=== PATIENT | male | born 1980 | race Caucasian/White ===

== ENCOUNTER 2017-05-10 04:40 | Emergency (ER) | payer BC, OTHER ==
[2017-05-10] MEDS ORDERED: Ibuprofen 600 MG Tab PO ONE (05:05)
--- NOTE | 2017-05-10 05:18 | EDM.PDOC ---
ED HPI GENERAL MEDICAL PROBLEM - General Chief Complaint: Upper Extremity Injury/Pain Stated Complaint: crush injury Time Seen by Provider: 05/10/17 05:00 Source of Information: Reports: Patient History Limitations: Reports: No Limitations - History of Present Illness INITIAL COMMENTS - FREE TEXT/NARRATIVE: Patient got finger caught between two pieces of steel that he was sheering while working at [employer]. Tip of finger has crush injury. No numbness or tingling. Able to flex and extend finger. Denies other injuries. Skin is intact. left 4th digit (ring finger) Pain Score (Numeric/FACES): 4 - Related Data Allergies Allergy/AdvReac Type Severity Reaction Status Date / Time No Known Allergies Allergy Verified 05/10/17 04:48 Home Meds: Home Meds . [No Known Home Meds] 05/10/17 [History] Past Medical History - Past Health History Medical/Surgical History: Denies Medical/Surgical History Musculoskeletal History: Reports: Fracture - Past Surgical History Musculoskeletal Surgical History: Reports: Other (See Below) Other Musculoskeletal Surgeries/Procedures:: left forearm fracture with surgical repair- no added metal Social & Family History - Tobacco Use Smoking Status *Q: Former Smoker Used Tobacco, but Quit: Yes Month Tobacco Last Used: 2009 Review of Systems - Review of Systems Review Of Systems: ROS reveals no pertinent complaints other than HPI. ED EXAM, GENERAL - Physical Exam Exam: See Below Exam Limited By: No Limitations General Appearance: Alert, WD/WN, No Apparent Distress Eye Exam: Bilateral Eye: EOMI, PERRL Head: Atraumatic, Normocephalic Neck: Supple Respiratory/Chest: No Respiratory Distress Peripheral Pulses: 2+: Radial (L) GI/Abdominal: Soft, Non-Tender (Male) Exam: Deferred Rectal (Males) Exam: Deferred Extremities: Other (Mild early bruising at base of nail bed and fingertip of left ring finger. No lacerations or abrasions. Nail is intact. Tendon function intact. Sensory intact. Remaining fingers and rest of hand unremarkable. ) Neurological: Alert, Oriented, Normal Cognition, No Motor/Sensory Deficits Psychiatric: Normal Affect, Normal Mood Skin Exam: Warm, Dry, Intact, Ecchymosis Course - Vital Signs Last Recorded V/S: Last Vital Signs Temp 36.6 C 05/10/17 04:43 Pulse 77 05/10/17 04:43 Resp 18 05/10/17 04:43 BP 141/82 H 05/10/17 04:43 Pulse Ox 95 05/10/17 04:43 - Orders/Labs/Meds Orders: Active Orders 24 hr Category Date Time Status Hand Comp Min 3V Lt [CR] Stat Exams 05/10/17 04:49 Taken Meds: Medications Discontinued Medications Generic Name Dose Route Start Last Admin Trade Name Freq PRN Reason Stop Dose Admin Ibuprofen 600 mg 05/10/17 05:05 Motrin PO 05/10/17 05:06 ONETIME ONE - Radiology Interpretation Free Text/Narrative:: Fracture of distal phalanx 4th finger confirmed by xray. Non-displaced. - Re-Assessments/Exams Free Text/Narrative Re-Assessment/Exam: Non-displaced fracture of left ring finger confirmed. Splint placed over tip of finger. Work restrictions determined. No subungual hematoma at this time. Discussed with patient that he should return if one develops. Precautions reviewed prior to discharge. Free Text/Narrative Re-Assessment/Exam: 05/10/17 05:25 Patient requested an Ibuprofen for pain. Declined other pain medications. Departure - Departure Time of Disposition: 05:14 Disposition: Home, Self-Care 01 Condition: Good Clinical Impression: Finger fracture, left Qualifiers: Encounter type: initial encounter Finger: ring finger Fracture type: closed Phalanx: distal Fracture alignment: nondisplaced Qualified Code(s): S62.665A - Nondisplaced fracture of distal phalanx of left ring finger, initial encounter for closed fracture - Discharge Information Instructions: Finger Fracture, [id number] Referrals: PCP,Unknown [Primary Care Provider] - Forms: ED Department Discharge Additional Instructions: Wear brace you were given in the ER to help protect the injured area from movement/re-injury. Follow up with your primary care clinic in 7-10 days to see how things are healing. Further work restrictions can be determined at that time if needed. Follow up otherwise as needed. - My Orders Last 24 Hours: My Active Orders 05/10/17 04:49 Hand Comp Min 3V Lt [CR] Stat - Assessment/Plan Last 24 Hours: My Active Orders 05/10/17 04:49 Hand Comp Min 3V Lt [CR] Stat
== END 2017-05-10 05:43 | disposition home or self-care (01) ==
LOC: LL.ED 04:40
DX: S62.665A Nondisplaced fracture of distal phalanx of left ring finger, initial encounter for closed fracture (principal); Z87.891 Personal history of nicotine dependence; W23.0XXA Caught, crushed, jammed, or pinched between moving objects, initial encounter; Y99.0 Civilian activity done for income or pay
CPT/HCPCS: 73130; 99283; A9270; L3999